=== PATIENT | male | born 1975 | race Caucasian/White ===

== ENCOUNTER → 2020-02-23 | Outpatient (CLI) | payer BC, OTHER ==
--- NOTE | 2020-02-23 11:59 | Diagnostic Imaging Report ---
Pain and swelling, twisting injury, prior surgery. EXAMINATION: Right knee from 02/23/2020. FINDINGS: Four views of the right knee. There is some narrowing and spurring in the medial and lateral joint spaces worse laterally. Patellofemoral narrowing and spurring is moderate in nature with a small suprapatellar effusion. There are no acute fractures or dislocations. IMPRESSION: 1. Tricompartmental degenerative disease. 2. Small joint effusion. Dictated by: Dictated on workstation # [id number]
== END ==
LOC: RAD FS 11:26
PROVIDERS: ATTEND Nurse Practitioner Family
DX: M17.11 Unilateral primary osteoarthritis, right knee (principal); Z98.890 Other specified postprocedural states
CPT/HCPCS: 73562

== ENCOUNTER 2021-01-28 11:07 | Outpatient (CLI) | payer BC ==
[~2021-01-28] VITALS: Ht 182.9 cm; Wt 167.8 kg
[2021-01-28 11:15] VITALS: BP 132/77
[2021-01-28] MEDS ORDERED: diphenhydrAMINE 50 MG/ML INJ (BENADRYL) IV PRN (12:45)
[2021-01-28] MEDS ORDERED: ACETAMINOPHEN 500 MG TAB (TYLENOL) PO PRN (12:45)
[2021-01-28] MEDS ORDERED: BAMLANIVIMAB 700 MG/ETESEVIMAB 1,400 MG IN NS IV ONE ×3 (12:45)
[2021-01-28] MEDS ORDERED: ONDANSETRON 4 MG/2 ML (SDV) Z0FRAN IV PRN (12:45)
[2021-01-28] MEDS ORDERED: EPINEPHrine INJECTION 1 MG/ML AMP IM PRN (12:45)
[2021-01-28 13:37] VITALS: BP 130/78
== END 2021-01-28 14:24 | disposition home or self-care (01) ==
LOC: INFUSION 11:07
PROVIDERS: ATTEND Nurse Practitioner Family
DX: U07.1 COVID-19 (principal)